=== PATIENT | female | born 1950 | race Caucasian/White ===

== ENCOUNTER 2017-02-01 07:35 | Day surgery (SDC) | payer MEDICARE, OTHER ==
[~2017-02-01] VITALS: Ht 157.5 cm; Wt 66.0 kg
[~2017-02-01 07:35] MED LIST: BLOOD PRESSURE MEDS; BUPIVACAINE/PF-EPI 0.25% 1:200K ONE; DIABETES MEDS; PT WILL BRING LIST
[2017-02-01] MEDS ORDERED: FENTANYL PF 250 MCG/5ML ONE (08:12)
[2017-02-01] MEDS ORDERED: MIDAZOLAM 1 MG/ML, 2ML ONE (08:12)
[2017-02-01 08:26] VITALS: BP 158/80
[2017-02-01] MEDS ORDERED: LACTATED RINGERS 1,000 ML IV SCH (08:30)
[2017-02-01] MEDS ORDERED: LEVO150T5 PO (08:33)
[2017-02-01] MEDS ORDERED: [UNRECOGNIZED DRUG - OTHER] EACH EAR (08:33)
[2017-02-01] MEDS ORDERED: CENTRUM PO (08:33)
[2017-02-01] MEDS ORDERED: LISI1TAB5 PO (08:33)
[2017-02-01] MEDS ORDERED: METFORMIN PO (08:33)
[2017-02-01] MEDS ORDERED: ATOR40TA78 PO (08:33)
[2017-02-01] MEDS ORDERED: GLYB5TAB3 PO (08:33)
[2017-02-01] MEDS ORDERED: CEFAZOLIN 1,000 MG ONE (09:40)
[2017-02-01] MEDS ORDERED: DEXAMETHASONE 4 MG/ML, 1ML ONE (09:40)
[2017-02-01] MEDS ORDERED: GLYCOPYRROLATE 0.2MG/1ML ONE (09:40)
[2017-02-01] MEDS ORDERED: SUCCINYLCHOLINE 20 MG/ML, 10ML ONE (09:40)
[2017-02-01] MEDS ORDERED: PROPOFOL 10 MG/ML, 20ML ONE (09:40)
[2017-02-01] MEDS ORDERED: KETOROLAC 30 MG/1 ML ONE (09:40)
[2017-02-01] MEDS ORDERED: NEOSTIGMINE 1 MG/ML, 10ML ONE (09:40)
[2017-02-01] MEDS ORDERED: ROCURONIUM 10 MG/ML ONE (09:40)
[2017-02-01] MEDS ORDERED: EPHEDRINE 50 MG/ML, 1ML ONE (09:40)
[2017-02-01] MEDS ORDERED: LABETALOL 5MG/ML ONE (09:40)
[2017-02-01] MEDS ORDERED: ONDANSETRON 2MG/ML, 2ML ONE (09:40)
[2017-02-01 09:56] LABS: BLOOD UREA NITROGEN 14 mg/dL (7-18)
[2017-02-01] MEDS ORDERED: ONDANSETRON 2MG/ML, 2ML IVPush PRN (10:00)
[2017-02-01] MEDS ORDERED: MEPERIDINE/PF 25MG/0.5ML IVPush PRN (10:00)
[2017-02-01] MEDS ORDERED: PROMETHAZINE 25 MG/ML, 1ML IV PRN (10:00)
[2017-02-01] MEDS ORDERED: LABETALOL 5MG/ML, 20ML IV PRN (10:00)
[2017-02-01] MEDS ORDERED: HYDROmorphone 1 MG/ML, 1ML IV PRN (10:00)
[2017-02-01] MEDS ORDERED: METOCLOPRAMIDE 5 MG/ML, 2ML IV PRN (10:00)
[2017-02-01] MEDS ORDERED: MIDAZOLAM 1 MG/ML, 2ML IV PRN (10:00)
[2017-02-01] MEDS ORDERED: ACETAMINOPHEN 325 MG TABLET PO PRN (10:00)
[2017-02-01] MEDS ORDERED: OXYcodone 5 MG/5 ML ORAL.SOL UDC PO PRN (10:00)
[2017-02-01] MEDS ORDERED: ALBUTEROL/IPRATROPIUM 2.5MG/0.5MG, 3 ML NPPB PRN (10:00)
[2017-02-01] MEDS ORDERED: hydrALAzine 20 MG/ML, 1ML IV PRN (10:00)
[2017-02-01] MEDS ORDERED: ACETAMINOPHEN 650 MG/20.3 ML UDC ONE (10:55)
[2017-02-01] MEDS ORDERED: OXYcodone 5 MG/5 ML ORAL.SOL UDC ONE (10:55)
[2017-02-01] MEDS ORDERED: ACETAMINOPHEN 325 MG TABLET ONE (10:55)
[2017-02-01] MEDS ORDERED: FENTANYL PF 100 MCG/2ML ONE (11:26)
[2017-02-01] MEDS: FENTANYL PF 100 MCG/2ML IV PRN ×2 (11:27→11:36)
== END 2017-02-01 13:50 ==
LOC: OUT 07:35
PROVIDERS: ATTEND Surgery
DX: K80.10 Calculus of gallbladder with chronic cholecystitis without obstruction (principal); I10 Essential (primary) hypertension; E11.9 Type 2 diabetes mellitus without complications; E78.5 Hyperlipidemia, unspecified; E03.9 Hypothyroidism, unspecified
CPT/HCPCS: 36415; 47562; 80048; 82962; 88304; 93005; J0330; J0690; J1100; J1885; J2250; J2405; J2704; J2710; J3010; J3490